=== PATIENT | female | born 1985 | race Hispanic/Latino ===

== ENCOUNTER 2021-12-10 20:46 | Emergency (ER) | payer OTHER, MEDICARE ==
[~2021-12-10] VITALS: Ht 154.9 cm; Wt 65.8 kg
[2021-12-10] MEDS ORDERED: HYDROCODON-ACE1 EA10 PO (21:48)
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
== END 2021-12-10 22:03 | disposition home or self-care (01) ==
LOC: ED 20:46
DX: S16.1XXA Strain of muscle, fascia and tendon at neck level, initial encounter (principal); S20.219A Contusion of unspecified front wall of thorax, initial encounter; Z88.0 Allergy status to penicillin; V43.52XA Car driver injured in collision with other type car in traffic accident, initial encounter
CPT/HCPCS: 71046; 72040; 99284-25; A9270